=== PATIENT | male | born 1975 | race Caucasian/White ===

== ENCOUNTER → 2016-12-17 | Outpatient (CLI) | payer OTHER, BC ==
[~2016-12-17] MED LIST: BACL10TA PO; NABU500T PO
--- NOTE | 2016-12-17 12:24 | KCIC ---
PROCEDURE Cervical spine radiographs HISTORY Chronic neck pain and stiffness, fall 2 years ago, previous fusions, cervicalgia COMPARISON April 29, 2011 FINDINGS Three views of the cervical spine are submitted. Cervical vertebral body stature and AP alignment are unchanged, within normal limits. There is again anterior cervical fusion hardware with anterior metallic plate and screws at C6-7, osseous interbody fusion not apparent. There is also anterior hardware and interbody spacer at C5-C6, unchanged in appearance. No acute osseous abnormality is identified. Atlantoaxial distance is within normal limits. There is adequate alignment of the lateral masses C1 relative to C2. IMPRESSION 1. Radiographic findings are unchanged compared with 2011 exam, previous anterior cervical fusion at C6-7 and interbody hardware at C5-C6. Electronically signed by: Wnog Vyas MD (Dec 17, 2016 12:23:32)
--- NOTE | 2016-12-17 12:34 | KCIC ---
PROCEDURE Three-view thoracic spine HISTORY Chronic pain and stiffness after a fall 2 years ago. COMPARISON None FINDINGS No evidence of acute fracture or aggressive bone destruction. The upper thoracic vertebrae are poorly defined on the lateral view due to overlapping structures. Alignment intact. Disc spaces grossly intact. No significant paraspinal soft tissue swelling is identified. There are postsurgical changes identified at the lower cervical spine IMPRESSION No evidence of acute abnormality. MRI could further evaluate if indicated. Electronically signed by: Hussein Jordan MD (Dec 17, 2016 12:32:33)
== END | disposition home or self-care (01) ==
LOC: KCIC 10:41
PROVIDERS: ATTEND Nurse Practitioner Family
DX: M54.2 Cervicalgia (principal); M43.6 Torticollis
CPT/HCPCS: 72040; 72072

== ENCOUNTER → 2016-12-23 | Outpatient (CLI) | payer OTHER, BC ==
--- NOTE | 2016-12-23 09:21 | KCIC ---
PROCEDURE Cervical spine MRI without contrast. HISTORY Pain and left upper extremity weakness. TECHNIQUE Multiplanar and multi sequence magnetic resonance imaging of the cervical spine was performed without contrast. COMPARISON 02/11/2011 FINDINGS There are findings consistent with instrumented anterior spinal fusion at C6-C7 and interbody fusion at C5-C6. There is mild cervical kyphosis centered at C4-C5. There is no significant listhesis. The vertebral bodies are normal in height. No spinal cord lesion is seen. The posterior fossa and skullbase are unremarkable. At C2-C3, there is mild facet arthropathy. There is no stenosis. At C3-C4, there is minimal endplate remodeling. There is mild left facet arthropathy. There is no stenosis. At C4-C5, there is a right paracentral disc protrusion which abuts the right ventral aspect of the spinal cord. There is endplate remodeling. There is no stenosis. At C5-C6, there is a disc bulge with right greater than left posterior lateral endplate remodeling. There is right uncovertebral arthropathy. There is mild right foraminal stenosis. At C6-C7, there is endplate remodeling. There is no stenosis. At C7-T1, there is mild to moderate facet arthropathy. There is mild right foraminal stenosis. IMPRESSION 1. Multilevel degenerative change within the cervical spine, described in detail above. There is associated mild right foraminal stenosis at C5-C6 and C7-T1 and abutment of the right ventral aspect of the spinal cord without significant stenosis at C4-C5. There has been interval interbody fusion at C5-C6. The previously demonstrated disc extrusion is no longer seen. The remainder of the cervical spine is not significantly changed compared to the prior study. 2. Mild cervical kyphosis. There is no significant listhesis. Electronically signed by: Radha Pan (Dec 23, 2016 09:20:10)
== END | disposition home or self-care (01) ==
LOC: KCIC MRI 08:30
PROVIDERS: ATTEND Nurse Practitioner Family
DX: M54.2 Cervicalgia (principal)
CPT/HCPCS: 72141

== ENCOUNTER → 2017-01-08 | Outpatient (CLI) | payer BC, OTHER ==
[~2017-01-08] MED LIST changes: +CARI350T PO; +IOHEXOL 180 MG/ML 10 ML VIAL. ONE; +MELO-150 PO; +methylPREDNISolone ACETATE 40 MG/ML VIAL. ONE; +methylPREDNISolone ACETATE 80 MG/ML VIAL. ONE
--- NOTE | 2017-01-08 22:31 | PAIN ---
DATE OF SERVICE: 01/08/2017 PROGRESS NOTE DIAGNOSES: 1. Cervical radiculopathy with cervical degenerative disk disease. 2. Lumbar radiculopathy with lumbar degenerative disk disease. HISTORY OF PRESENT ILLNESS: The patient is a 41-year-old male, who returns for followup, last seen in 2014. The patient with lumbar epidural steroid injection with very good results. He returns now with new MRI scan results and pain in the base of the neck and left upper extremity. 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 He has had cervical surgery previously. This is exacerbated some of the pain in the base of the neck and left upper extremity, radiating to the posterior lateral aspect of the arm, forearm in to the hand with some tingling in the left hand and fingers as well. The patient reports it aches as a burning pain at the base of the neck and the bilateral shoulders, worse as well with activity, use of the upper extremities, he has been not getting dressed ____ the left arm over his head and other lifting objects and activity. The patient reports no new motor or sensory deficits, no new bowel or bladder incontinence or other complaints. The patient's MRI scan does show multilevel degenerative change within the cervical spine, right foraminal stenosis C5-C6 and C7-T1 with ____ of the right ventral aspect of the spinal cord, but without significant stenosis C4-C5 with previous interbody fusion at C5-C6 as noted. PHYSICAL EXAMINATION: VITAL SIGNS: The patient's blood pressure is 140/106, pulse 80, respirations 16, temperature 97.5 degrees Fahrenheit, weight is 232 pounds. GENERAL: The patient is awake, alert, oriented, appropriate, very pleasant demeanor. HEENT: Head shows normocephalic, atraumatic. Extraocular movements are intact, symmetrical. Oral cavity shows mucous membranes moist and pink. Dentition is intact. NECK: Shows anterior throat supple without palpable lymphadenopathy noted. Swallow reflex is symmetrical. CHEST: Shows normal on inspection. Breath sounds are clear to auscultation bilaterally. HEART: Shows S1 and S2 clear. No murmurs are auscultated. ABDOMEN: Soft, nontender, nondistended. No palpable organomegaly. No rebound or guarding demonstrated. BACK: Shows spine grossly in midline. Cervical paraspinous muscle shows some moderate tenderness with palpation throughout the middle and lower distribution of the cervical paraspinous muscles, also superior medial trapezius bilaterally and is very firm, diffusely tender again with no atrophy, hypertrophy, no trigger points, no radiation of pain. The patient does show good rotational motion of cervical spine including extension and flexion without significant increase in pain. EXTREMITIES: Upper extremities showed deep tendon reflexes 2+ in the biceps and triceps tendons. Motor exam is strong with 5/5 director talent acquisition strength, biceps and triceps flexion and symmetrical. Options were discussed with the patient and the patient's old chart was reviewed and his current medication regimen updated. Current review of systems updated today as well and discussed the MRI scan with him in some detail as well. We will proceed with a cervical epidural steroid injection today with fluoroscopic guidance. Risks were again discussed including, but not limited to bleeding, infection, possibility of epidural hematoma, subsequent neurologic compromise, dural puncture, headaches, spinal cord and/or nerve damage, side effects of steroid medication and poor results regarding pain control. The patient understands and wishes to proceed. The patient will return to clinic in approximately 2 weeks for followup, was counseled on return appointment, activity level, and side effects to be aware of. DIAGNOSES: Cervical radiculopathy with cervical degenerative disk disease. PROCEDURE: Cervical epidural steroid injection translaminar approach at the C6-C7, level using C-arm fluoroscopic guidance under sterile prep and drape using local anesthesia. Medications injected 120 mg Depo-Medrol plus 5 mL of preservative-free normal saline and 2 mL of Isovue for contrast. CONDITION AT DISCHARGE: Stable. The patient tolerated procedure well, had no complications. FILIBERTO MALAGON MD DR: JACOB/sadiq JOB#: [id number] / [id number]
== END | disposition home or self-care (01) ==
LOC: PNCL 10:24
PROVIDERS: ATTEND Anesthesiology
DX: M50.123 Cervical disc disorder at C6-C7 level with radiculopathy (principal)
CPT/HCPCS: 62321; J1030; J1040

== ENCOUNTER → 2017-08-31 | Outpatient (CLI) | payer BC ==
[~2017-08-31] MED LIST changes: -MELO-150 PO; +MELO15TA23 PO
--- NOTE | 2017-09-01 01:37 | PAIN ---
DATE OF SERVICE: 08/31/2017 PROGRESS NOTE FOR PAIN CLINIC DIAGNOSIS: 1. Lumbar radiculopathy with lumbar degenerative disk disease. 2. Cervical radiculopathy with cervical degenerative disk disease. HISTORY OF PRESENT ILLNESS: The patient is a 42-year-old male who returns for followup status post most recently cervical epidural steroid injection on 01/08/2017. The patient did very well with about 90% improvement and then gradually return over the past 3 or 4 weeks in the base of the neck and shoulders with some radiation into the left upper extremity as it was previously, but not nearly to the intensity that it was. The patient's main complaint is low back pain with radiation to the bilateral lower extremities pretty much equal at this time right and left lower extremities, initially was somewhat worse in the right side. 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 Also has some tightness in the muscles in his neck. 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 Most significantly, the patient reports the back is a burning, aching type sensation and is an irritated feeling in the base of the neck with some tightness as well as radiation again to the left arm. The patient reports his pain is a worse at a 4 on a scale of 10, it is average about 3 and is at a 2 on a scale of 10 at its least and is a 2 this morning. The patient reports no new motor or sensory deficit. No new bowel or bladder incontinence or other complaints. PHYSICAL EXAMINATION: VITAL SIGNS: The patient's blood pressure is 125/95, pulse 72, respirations are 18, temperature is 98.1 degrees Fahrenheit, height is 6 feet 2 inches and weight is 229 pounds. GENERAL: The patient is awake, alert, oriented, appropriate and very pleasant demeanor. HEENT: Exam shows normocephalic and atraumatic. Extraocular movements are intact and symmetrical. Oral cavity shows mucous membranes moist and pink. Dentition is intact. NECK: Shows anterior throat supple without palpable lymphadenopathy noted. Swallow reflex is symmetrical. CHEST: Normal on inspection. Breath sounds are clear to auscultation bilaterally. HEART: Shows S1 and S2 clear. No murmurs auscultated. ABDOMEN: Soft, nontender and nondistended. No palpable organomegaly is noted. No rebound or guarding demonstrated. MUSCULOSKELETAL: Back shows spine grossly in the midline. Normal appearing cervical lordotic curvature with thoracic kyphotic curvature and lumbar lordotic curvature. No previous bruises, lesions, rashes or scars are noted. The patient's neck shows symmetrical on inspection. With palpation shows some moderate tenderness with palpation at the base of the cervical paraspinous musculature as well as the superior, medial and trapezius musculature, but symmetrical and equal bilaterally. The patient shows good rotational motion of the cervical spine both laterally as well as extension and flexion without difficulty and without reproduction of radicular symptoms with rotational motion of the neck. The patient's lower back shows symmetrical with inspection of the paraspinal muscles in the lumbar distribution. On palpation, it shows some mild tenderness, but only diffusely in the low lumbar distribution bilaterally, but is fairly tender diffusely as well. No tenderness of the sacrum or sacroiliac regions. The patient has full rotational motion of the lumbar spine, both greater than 10 degrees right and left as well as extension greater than 10 degrees, forward flexion 45 degrees in the lumbar spine without increased pain. Lower extremities showed deep tendon reflexes at 2+ in the patellar, 1+ tendo calcaneus tendon. Motor exam is strong with 5/5 dorsiflexion, extension, quadricep and hamstring flexion. Peripheral pulses are 1+. No peripheral edema is noted. Upper extremities show deep tendon reflexes are 2+/4 in the biceps and triceps tendons. Motor exam is strong with district administrative assistant strength rated at 5/5 as is biceps and triceps flexion. Peripheral pulses are 2+ radial distribution. No edema in the upper extremities as well. Options were discussed with the patient. The patient's old chart was reviewed as his current medication regimen and updated. Current review of systems updated today as well. We will proceed with a lumbar epidural steroid injection today as this is his area of chief complaint. Risks were discussed including, but not limited to bleeding, infection, possibility of epidural hematoma, subsequent neurologic compromise, dural puncture, headaches, spinal cord and/or nerve damage, side effects to steroid medication and poor results regarding pain control. The patient understands and wishes to proceed. The patient will return to the clinic in approximately 2 weeks for followup, was counseled on return appointment, activity level and side effects to be aware of. DIAGNOSES: 1. Lumbar radiculopathy with lumbar degenerative disk disease. 2. Cervical radiculopathy with cervical degenerative disk disease. PROCEDURE: Lumbar epidural steroid injection, translaminar approach at the L5-S1 level using C-arm fluoroscopic guidance under sterile prep and drape using local anesthetic. MEDICATION INJECTED: A total of 120 mg of Depo-Medrol plus 10 mL of preservative free normal saline and 2 mL of Isovue for contrast. CONDITION AT DISCHARGE: Stable. The patient tolerated the procedure well and had no complications. FILIBERTO MALAGON MD DR: JACOB/sadiq JOB#: [id number] / [id number]
== END | disposition home or self-care (01) ==
LOC: PNCL 11:16
PROVIDERS: ATTEND Anesthesiology
DX: M51.16 Intervertebral disc disorders with radiculopathy, lumbar region (principal); M50.10 Cervical disc disorder with radiculopathy, unspecified cervical region
CPT/HCPCS: 62323; J1030; J1040

== ENCOUNTER → 2017-09-14 | Outpatient (CLI) | payer BC ==
--- NOTE | 2017-09-14 17:54 | PAIN ---
DATE OF SERVICE: 09/14/2017 DIAGNOSES: 1. Lumbar radiculopathy with lumbar degenerative disk disease. 2. Cervical radiculopathy with cervical degenerative disk disease. HISTORY OF PRESENT ILLNESS: The patient is a 42-year-old male who returns for followup status post lumbar epidural steroid injection x 1 on 08/31/2017. The patient reports about 70% improvement in the low back and bilateral lower extremities. The patient reports it increased his activity with greater ease and comfort, feels much better. His chief complaint today is neck pain in the base of neck and the shoulders radiating to the upper extremities, more on the left than the right but present bilaterally. The patient reports it is becoming more noticeable, has been keeping him awake occasionally from sleep at night but not most nights, he sleeps fairly well. The patient reports the pain is a 5 on a scale of 10 at its worst, 3 on average, 1 at its least, is a 3 today. The patient reports it is aching, tight, burning, radiating from the neck into the upper extremities, again much worse on the left side with some tingling in the left hand, no loss of motor function. No weakness, but still significant pain with activity raising above his head with his left arm, driving a car or any repetitive motions with left upper extremity. He reports no new motor or sensory deficits, no new bowel or bladder incontinence or other complaints. PHYSICAL EXAMINATION: VITAL SIGNS: Today, the patient's blood pressure is 139/92, pulse 73, respirations 18, temperature 98.3 degrees Fahrenheit, 6 feet 3 inches, weighs 225 pounds. GENERAL: The patient is awake, alert, oriented, appropriate, very pleasant demeanor. HEENT: Head shows normocephalic, atraumatic. Extraocular movements are intact, symmetrical. Oral cavity: Mucous membranes moist and pink. Dentition is intact. NECK: Shows anterior throat supple without palpable lymphadenopathy noted. Swallow reflex is symmetrical. CHEST: Shows normal on inspection. Breath sounds clear to auscultation bilaterally. HEART: Shows S1, S2 clear. No murmurs auscultated. ABDOMEN: Soft, nontender, nondistended. No palpable organomegaly is noted. No rebound or guarding demonstrated. BACK: Shows spine grossly in midline. Normal appearing thoracic kyphosis and lumbar lordotic curvature. Lumbar paraspinous muscle shows symmetrical on inspection with palpation shows some moderate tenderness diffusely in the low lumbar distribution, but only very mildly. Cervical paraspinous muscle shows symmetrical on inspection with palpation shows some tenderness in the inferior aspect of cervical paraspinous muscles bilaterally and into the superior medial and lateral trapezius, more on the left than the right. The patient shows good rotational motion of cervical spine, both laterally greater than 45 degrees right and left as well as extension and full forward flexion without exacerbation of pain. EXTREMITIES: Upper extremities show deep tendon reflexes 2+ in the biceps and triceps tendons. Motor exam is strong with vp patient strength rated at 5/5 as is bicep and tricep flexion bilaterally without deficit. Peripheral pulses are 2+ radial distribution. Lower extremities show deep tendon reflexes 2+ patellar, 1+ tendo calcaneus tendons. Motor exam is strong with 5/5 dorsiflexion, extension, quadriceps and hamstring flexion. Peripheral pulses are 1+ posterior tibial. No peripheral edema is noted in the lower extremities as well. Options were discussed with the patient. The patient's old chart was reviewed as his current medication regimen and updated. Current review of systems is updated today as well. We will proceed with a cervical epidural steroid injection today with fluoroscopic guidance. Risks were again discussed including, but not limited to bleeding, infection, possibility of epidural hematoma, subsequent neurologic compromise, dural punctures, headaches, spinal cord and/or nerve damage, side effects of steroid medication and poor results regarding pain control. The patient understands and wished to proceed. The patient will return to clinic in approximately 2 weeks for followup. He was counseled on return appointment, activity level and side effects to be aware of. DIAGNOSES: 1. Cervical radiculopathy with cervical degenerative disk disease. 2. Lumbar radiculopathy with lumbar degenerative disk disease. PROCEDURE: Cervical epidural steroid injection, translaminar approach at the C6-C7 level using C-arm fluoroscopic guidance under sterile prep and drape using local anesthetic. MEDICATION INJECTED: A total of 120 mg Depo-Medrol plus 5 mL preservative-free normal saline and 2 mL of Isovue for contrast. CONDITION AT DISCHARGE: Stable. The patient tolerated the procedure well, had no complications. FILIBERTO MALAGON MD DR: JACOB/sadiq JOB#: [id number] / [id number]
== END ==
LOC: PNCL 08:25
PROVIDERS: ATTEND Anesthesiology
DX: M50.123 Cervical disc disorder at C6-C7 level with radiculopathy (principal); M51.16 Intervertebral disc disorders with radiculopathy, lumbar region
CPT/HCPCS: 62321; J1030; J1040

== ENCOUNTER → 2017-10-13 | Outpatient (CLI) | payer BC ==
--- NOTE | 2017-10-13 12:08 | PAIN ---
DATE OF SERVICE: 10/13/2017 PROGRESS NOTE FOR PAIN CLINIC DIAGNOSES: 1. Lumbar radiculopathy with lumbar degenerative disk disease. 2. Cervical radiculopathy with cervical degenerative disk disease and post-cervical laminectomy syndrome. HISTORY OF PRESENT ILLNESS: The patient is a 42-year-old male who returns for followup status post lumbar epidural steroid injection x 1 and cervical epidural steroid injection x 1. The patient reports he did very well with back, is still doing about 90% better. Neck is only about 25% better. He reports still some significant pain at base of the neck and shoulders, essentially equal right and left but slightly more on the left most times. The patient reports it is worse with activity, standing, walking, changing positions. It has been bothering from his sleep occasionally, but not every night. The patient reports his pain is 3 on a scale of 10 at its worst, on average has a 3 and 1 at its least and is 3 today. The patient reports aching, tight across the shoulders into the base of the neck, base of the shoulders, more on the left than the right and into the upper extremities, again more on the left side, but only with increased activity. The patient reports no new motor or sensory deficits, no new bowel or bladder incontinence or other complaints. PHYSICAL EXAMINATION: VITAL SIGNS: The patient's blood pressure is 132/93, pulse 72, respirations 18, temperature 98.1 degrees Fahrenheit, height 6 feet 3 inches, weight is 228 pounds. GENERAL: The patient is awake, alert, oriented, appropriate, very pleasant demeanor. HEENT: Shows normocephalic, atraumatic. HEENT: Extraocular movements are intact, symmetrical. Oral cavity: Mucous membranes moist and pink. Dentition is intact. NECK: Shows anterior throat supple without palpable lymphadenopathy noted. Swallow reflex is symmetrical. CHEST: Shows normal on inspection. Breath sounds clear to auscultation bilaterally. HEART: Shows S1 and S2 clear. No murmurs auscultated. ABDOMEN: Soft, nontender, nondistended. No palpable organomegaly. There is no rebound or guarding demonstrated. BACK: Shows spine grossly midline, normal-appearing cervical lordotic curvature, thoracic kyphotic curvature, lumbar lordotic curvature. Cervical paraspinous muscle shows symmetrical on inspection, with palpation shows some mild tenderness with palpation, but only diffusely in the inferior aspect of the cervical paraspinous muscles as well as the superior medial and lateral trapezius, again more tender on the left than the right without radiation. No trigger points. EXTREMITIES: Upper extremities show deep tendon reflexes 2+ in the biceps, triceps tendons. Motor exam is strong with 5/5 dressing room porter strength, bicep and tricep flexion. Peripheral pulses are 2+ radial distribution. Lower extremities show deep tendon reflexes 2+ in the patellar tendons. Motor exam is strong with 5/5 dorsiflexion, extension and peripheral pulses are 1+ bilaterally. No peripheral edema is noted in any of the extremities. Options were discussed with the patient. The patient's old chart was reviewed. His current medication regimen updated. Current review of systems updated today as well. We will proceed with a cervical epidural steroid injection today as the third overall injection. Risks were again discussed including, but not limited to bleeding, infection, possibility of epidural hematoma and subsequent neurological compromise, dural puncture, headaches, spinal cord and/or nerve damage, side effects of steroid medication and poor results regarding pain control. The patient understands and wished to proceed. The patient will return to clinic in approximately 2 weeks for followup. He was counseled to return appointment, activity level and side effects to be aware of. DIAGNOSES: 1. Cervical radiculopathy with cervical degenerative disk disease and post-cervical laminectomy syndrome. 2. Lumbar radiculopathy with lumbar degenerative disk disease. PROCEDURE: Cervical epidural steroid injection, translaminar approach at C6-7 level using C-arm fluoroscopic guidance under sterile prep and drape using local anesthetic. Medication injected a total of 120 mg Depo-Medrol plus 5 mL preservative-free normal saline and 2 mL of Isovue for contrast. CONDITION AT DISCHARGE: Stable. The patient tolerated the procedure well, had no complications. FILIBERTO MALAGON MD DR: JACOB/sadiq JOB#: [id number] / [id number]
== END | disposition home or self-care (01) ==
LOC: PNCL 09:33
PROVIDERS: ATTEND Anesthesiology
DX: M50.123 Cervical disc disorder at C6-C7 level with radiculopathy (principal); M96.1 Postlaminectomy syndrome, not elsewhere classified; M51.16 Intervertebral disc disorders with radiculopathy, lumbar region
CPT/HCPCS: 62321; J1030; J1040

== ENCOUNTER → 2017-11-17 | Outpatient (CLI) | payer BC ==
[~2017-11-17] MED LIST changes: -BACL10TA PO; -CARI350T PO; +IOHEXOL 180 MG/ML 10 ML VIAL.; -IOHEXOL 180 MG/ML 10 ML VIAL. ONE; -MELO15TA23 PO; -NABU500T PO; +methylPREDNISolone ACETATE 40 MG/ML VIAL.; -methylPREDNISolone ACETATE 40 MG/ML VIAL. ONE; +methylPREDNISolone ACETATE 80 MG/ML VIAL.; -methylPREDNISolone ACETATE 80 MG/ML VIAL. ONE
== END | disposition home or self-care (01) ==
LOC: PNCL 07:46
DX: M51.16 Intervertebral disc disorders with radiculopathy, lumbar region (principal); M50.10 Cervical disc disorder with radiculopathy, unspecified cervical region; M96.1 Postlaminectomy syndrome, not elsewhere classified
CPT/HCPCS: 62323; J1030; J1040; Q9965

== ENCOUNTER → 2018-06-03 | Outpatient (CLI) | payer BC ==
[~2018-06-03] MED LIST changes: +BACL10TA PO; +CARI350T PO; +CYCL10TA2 PO; -IOHEXOL 180 MG/ML 10 ML VIAL.; +MELO15TA23 PO; +NABU500T PO; -methylPREDNISolone ACETATE 40 MG/ML VIAL.; -methylPREDNISolone ACETATE 80 MG/ML VIAL.
--- NOTE | 2018-06-03 17:37 | KCIC ---
HAND BILAT 3V History: Polyarthralgia. Comparison: None are available Three-view bilateral hands are obtained. No evidence of joint space loss. No marginal erosion or bone production is seen. Alignment intact. No evidence of acute fracture. No dislocation. Soft tissues appear unremarkable. IMPRESSION: No significant radiographic abnormality. Electronically signed by: Hussein Jordan MD (06/03/2018 5:33 PM) [id number]
== END | disposition home or self-care (01) ==
LOC: KCIC 16:01
PROVIDERS: ATTEND Internal Medicine Rheumatology
DX: M25.542 Pain in joints of left hand (principal); M25.541 Pain in joints of right hand
CPT/HCPCS: 73130

== ENCOUNTER → 2019-02-27 | Outpatient (CLI) | payer BC ==
[~2019-02-27] MED LIST changes: +FISH1CAP PO; +HYDR200T71 PO; +IOHEXOL 180 MG/ML 10 ML VIAL. ONE; +methylPREDNISolone ACETATE 40 MG/ML VIAL. ONE; +methylPREDNISolone ACETATE 80 MG/ML VIAL. ONE
--- NOTE | 2019-02-28 01:54 | PAIN ---
DATE OF SERVICE: 02/27/2019 DIAGNOSES: 1. Lumbar radiculopathy with lumbar degenerative disk disease. 2. Cervical radiculopathy with cervical degenerative disk disease and post-cervical laminectomy syndrome. HISTORY OF PRESENT ILLNESS: The patient is a 44-year-old male who returns for followup status post both lumbar and cervical epidural steroid injections, last seen on 10/2017. The patient did very well after lumbar and cervical epidural steroid injection. The patient reports about 70% improvement overall, closer to 90% with his last injection, but now the pain is returning in the base of the neck and left shoulder. 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 This was about 3 weeks ago. The patient reports the pain is 5 on a scale of 10 at its worst in the last week, 2 on average, 1 at its least and is 2 today. The patient reports it is aching and dull, shooting in the posterior shoulder, posterior triceps, into the forearm, to the hand with numbness and tingling as well. The patient reports it is aching and dull in the neck, worse with activity, worse with lifting, but no motor loss or strength. Has some fatigability in the left arm with repetitive motions only. The patient reports no new motor or sensory deficit, does not awaken him from sleep at night. No new changes. PHYSICAL EXAMINATION: VITAL SIGNS: The patient's blood pressure is 137/98, pulse 73, respirations are 18, temperature is 98.2 degrees Fahrenheit, height is 6 feet 3 inches and weight is 215 pounds. GENERAL: The patient is awake, alert, oriented, appropriate, very pleasant demeanor. HEENT: Head shows normocephalic, atraumatic. Extraocular movements are intact and symmetrical. Oral cavity: Mucous membranes moist and pink. Dentition is intact. NECK: Shows anterior throat supple without palpable lymphadenopathy noted. Swallow reflex is symmetrical. CHEST: Shows normal with inspection. Breath sounds clear to auscultation bilaterally. HEART: Shows S1, S2 clear. No murmurs auscultated. ABDOMEN: Soft, nontender, nondistended. No palpable organomegaly is noted. No rebound or guarding demonstrated. BACK: Shows spine grossly in the midline, normal-appearing cervical lordotic curvature, thoracic kyphotic curvature and lumbar lordotic curvature. Cervical paraspinous muscle shows symmetrical on inspection, with palpation shows some moderate tenderness diffusely in the middle and lower distribution of paraspinous musculature, slightly worse on the left than the right and more tender in the left superior medial trapezius than the right. No trigger points, no radiation of pain. The patient has good rotational motion of the cervical spine, both laterally as well as extension and flexion without significant difficulty or pain reported. EXTREMITIES: The patient's upper extremities show deep tendon reflexes 2+ in the biceps and triceps tendons. 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 Peripheral pulses are 2+ radial distribution. No peripheral edema is noted. Options were discussed with the patient. The patient's old chart was reviewed as was his current medication regimen updated. Current review of systems updated today as well and we will proceed with a cervical epidural steroid injection today, the first in this series with fluoroscopic guidance. Risks were again discussed including, but not limited to bleeding, infection, possibility of epidural hematoma and subsequent neurological compromise, dural puncture, headaches, spinal cord and/or nerve damage, side effects of steroid medication and poor results regarding pain control. The patient understands and wished to proceed. The patient will return to clinic in approximately 2 weeks for followup, was counseled as to return appointment, activity level and side effects to be aware of. DIAGNOSIS: Cervical radiculopathy with cervical degenerative disk disease, post-cervical laminectomy syndrome. PROCEDURE: Cervical epidural steroid injection translaminar approach C6-C7 level using C-arm fluoroscopic guidance under sterile prep and drape using local anesthetic. MEDICATION INJECTED: A total of 120 mg Depo-Medrol plus 5 mL of preservative-free normal saline and 2 mL of Isovue for contrast. CONDITION AT DISCHARGE: Stable. The patient tolerated the procedure well, had no complications. FILIBERTO MALAGON MD DR: JACOB/sadiq JOB#: [id number] / [id number]
== END | disposition home or self-care (01) ==
LOC: PNCL 13:38
PROVIDERS: ATTEND Anesthesiology
DX: M50.123 Cervical disc disorder at C6-C7 level with radiculopathy (principal); M96.1 Postlaminectomy syndrome, not elsewhere classified; M51.16 Intervertebral disc disorders with radiculopathy, lumbar region
CPT/HCPCS: 62321; J1030; J1040; Q9965